=== PATIENT | female | born 1970 | race Caucasian/White ===

== ENCOUNTER → 2020-11-23 11:16 | Outpatient (BNVA) | payer OTHER, SELFPAY | PROVIDERS: Visit Provider Emergency Medicine | DX: R05 Cough (principal); R10.9 Unspecified abdominal pain; R11.0 Nausea; J45.909 Unspecified asthma, uncomplicated; R68.89 Other general symptoms and signs; Z20.822 Contact with and (suspected) exposure to COVID-19 | CPT/HCPCS: 81000; 87400; 87635 ==